=== PATIENT | male | born 1985 | race Two or more races ===

== ENCOUNTER 2022-09-20 13:22 | Emergency (ER) | payer BC, OTHER ==
[~2022-09-20] VITALS: Ht 167.6 cm; Wt 93.0 kg
[2022-09-20] MEDS ORDERED: KETOROLAC TROMETH 60MG/2ML VIAL IM ONE (17:30)
[2022-09-20] MEDS ORDERED: HYDROcodone-ACET 10/325MG TAB PO ONE (17:30)
[2022-09-20] MEDS ORDERED: HYDROmorphone HCL 2 MG/ML VL/or syr IM ONE (19:15)
[2022-09-20 19:37] VITALS: BP 107/69
[2022-09-20] MEDS ORDERED: IBUP-1455 PO (20:04)
[2022-09-20] MEDS ORDERED: PERCOT PO (20:04)
== END 2022-09-20 22:04 | disposition home or self-care (01) ==
LOC: ER 13:22 → EDBD 13:22 → ER 22:03
DX: M51.36 Other intervertebral disc degeneration, lumbar region (principal)
CPT/HCPCS: 72131; 96372; 99285; J1170; J1885